=== PATIENT | male | born 1995 | race Caucasian/White ===

== ENCOUNTER 2016-09-04 06:41 | Emergency (ER) | payer OTHER ==
[2016-09-04] MEDS ORDERED: ONDANSETRON 4 MG/2 ML VIAL IVP ONE (06:52)
[2016-09-04] MEDS ORDERED: NS 1,000 ML IV ONE (06:52)
[2016-09-04] MEDS ORDERED: LOPERAMIDE HCL 2 MG CAP PO ONE (06:53)
--- NOTE | 2016-09-04 06:58 | EDPHY ---
HPI/HX/ROS/PE/MDM Narrative: CHIEF COMPLAINT: N/V/D HPI: The patient is a 20-year-old male who complains of nausea, vomiting, and diarrhea that started at 9pm last night. The patient was driving back from [place] and believes he ate something bad along the way. The diarrhea has subsided this morning, but he continues to have emesis. No associated abdominal pain or fever. No recent travel out of the country. No recent antibiotics. REVIEW OF SYSTEMS: Aside from elements discussed in the HPI, a comprehensive 10-point review of systems was reviewed and is negative. PMH: Denies. SOCIAL HISTORY: Single. Lives in [place]. PHYSICAL EXAM: General: Patient is alert, in no acute distress. ENT: Eyes are normal to inspection. ENT inspection normal. Neck: Normal inspection. Full range of motion. Respiratory: No respiratory distress. Breath sounds normal bilaterally. Cardiovascular: Regular rate and rhythm. Strong peripheral pulses. Abdomen: The abdomen is nontender to palpation. There are no peritoneal signs. There are normal bowel sounds. Back: Normal to inspection. No tenderness to palpation. Skin: Normal color. No rash. Warm and dry. Extremities: Normal appearance. Full range of motion. Neuro: Oriented x3. Normal motor function. Normal sensory function. ED Course: Patient presents with N/V/D for the past 10 hours. Plan for hydration and IV Zofran. The patient was able to tolerate POs. He was unable to provide a stool sample today. Plan to discharge patient home with strict return precautions. MDM: This patient presents without non-bloody vomiting and diarrhea in the absence of abdominal pain, tenderness or fever. He is tolerating fluids by mouth here in the ED after treatment with IVNS and zofran. On re-eval, his abdomen remains benign. We discussed strict return precautions. I see no evidence for appendicitis, bowel obstruction or GI bleed. - Data Points Medications Given: Discontinued Medications Sodium Chloride (Ns) 1,000 mls @ 0 mls/hr IV ONCE ONE; Wide Open PRN Reason: Protocol Stop: 09/04/16 06:53 Last Admin: 09/04/16 07:07 Dose: 1,000 mls Loperamide HCl (Imodium) 4 mg PO EDNOW ONE Stop: 09/04/16 06:54 Last Admin: 09/04/16 07:40 Dose: Not Given Ondansetron HCl (Zofran) 4 mg IVP EDNOW ONE Stop: 09/04/16 06:53 Last Admin: 09/04/16 07:07 Dose: 4 mg General Time Seen by Provider: 09/04/16 06:51 Initial Vital Signs: Initial Vital Signs Temperature (C) 37.2 C 09/04/16 06:47 Heart Rate 95 09/04/16 06:47 Respiratory Rate 18 09/04/16 06:47 Blood Pressure 133/83 H 09/04/16 06:47 O2 Sat (%) 97 09/04/16 06:47 O2 Delivery Mode Room Air Allergies/Adverse Reactions: No Known Allergies Allergy (Unverified 09/04/16 06:47) Home Medications: Medication Instructions Recorded Ondansetron Odt [Zofran Odt] 4 mg PO Q4PRN PRN #10 tab 09/04/16 Departure - Departure Disposition: Home, Routine, Self-Care Clinical Impression: Vomiting Qualifiers: Vomiting type: unspecified Vomiting Intractability: non-intractable Nausea presence: with nausea Qualified Code(s): R11.2 - Nausea with vomiting, unspecified Diarrhea Qualifiers: Diarrhea type: unspecified type Qualified Code(s): R19.7 - Diarrhea, unspecified Condition: Good Instructions: Acute Nausea and Vomiting (ED), Acute Diarrhea (ED) Additional Instructions: Drink slow sips of fluids throughout the day. I recommend gradual diet advancement over the next 24 hours. Take Zofran as directed for nausea and vomiting. You have been referred to a primary care physician, please followup if you continue to have symptoms. Return to the emergency department if you develop fever, abdominal pain, severe vomiting or diarrhea, new or worsening symptoms. Referrals: Rosalva López MD [[facility] Primary Care Provider] - As per Instructions Prescriptions: Ondansetron Odt [Zofran Odt] 4 mg PO Q4PRN PRN #10 tab PRN Reason: Nausea Report Scribed for: Bassam Wong Report Scribed by: Arabella Best Date of Report: 09/04/16 Time of Report: 07:03 Physician Review and Approval Statement: Portions of this note were transcribed by a medical anthropology director. I personally performed a history, physical exam, medical decision making, and confirmed accuracy of information the transcribed note.
[2016-09-04 09:08] VITALS: BP 126/59; PULSE 80; RESP 16; TEMP 98.8; O2SAT 96
== END 2016-09-04 09:08 | disposition home or self-care (01) ==
DX: R11.2 Nausea with vomiting, unspecified (principal); R19.7 Diarrhea, unspecified; E86.9 Volume depletion, unspecified
CPT/HCPCS: 96374